=== PATIENT | female | born 1935 | race Asian ===

== ENCOUNTER 2019-07-10 08:42 | Outpatient (CLI) | payer MEDICARE, OTHER ==
--- NOTE | 2019-07-10 15:19 | Diagnostic Imaging Report ---
Indication: Cognitive dysfunction. Memory loss 84-year-old female Technique: The head was imaged in a 1.5 Olga magnet. Sequences obtained include sagittal and axial T1 FLAIR, axial T2 fast spin echo with fat saturation, axial T2* GRE, axial T2 FLAIR, diffusion and ADC map. Comparison: None Findings: There is moderate prominence of the sulci, ventricles, and basal cisterns consistent with atrophy. Moderate, nonspecific T2 hyperintensity noted within white matter. This may be due to chronic small vessel disease. There is no restricted diffusion. Dumont-white differentiation is normal. There is no mass effect, midline shift, edema, or hemorrhage. There are no abnormal extra-axial or intra-axial fluid collections. The corpus callosum and sella are unremarkable. The brainstem and cerebellum are unremarkable. Bone marrow signal within the visualized osseous structures appears age appropriate and unremarkable otherwise. There is a moderate degree of mucosal thickening within the paranasal sinuses. There is T2 hyperintense fluid signal in the right mastoid. Impression: No acute intracranial findings. Moderate atrophy and evidence of chronic small vessel disease involving white matter tracts. Sinusitis. Right mastoiditis
== END 2019-07-10 10:42 | disposition home or self-care (01) ==
LOC: MRI 08:42
DX: F41.3 Other mixed anxiety disorders (principal); H70.90 Unspecified mastoiditis, unspecified ear; J32.9 Chronic sinusitis, unspecified
CPT/HCPCS: 70551; 93306